=== PATIENT | female | born 1975 | race African-American/Black ===

== ENCOUNTER → 2022-06-04 | Day surgery (SDC) | payer OTHER ==
[~2022-06-04] VITALS: Ht 167.6 cm; Wt 170.1 kg
[~2022-06-04] MED LIST: ALDACTONE50 MG PO; ALIVE CALCIUM PO; DICLOFENAC SODI75 MG PO; MULTIVITAMIN200 MCG PO; NORVASC 10MG TA10 MG PO; VITAMIN D325 MC1 PO; ZYRTEC10 M3 PO
[2022-06-04 07:22] LABS: HCT 36.5 % (37.0-47.0); HGB 10.9 g/dl (12.5-16.0); MCH 24.4 pg (25.0-31.0); MCHC 29.9 g/dL (32.0-36.0); MCV 81.7 fL (78.0-100.0); MPV 8.7 fL (6.0-9.5); RBC 4.47 M/uL (4.20-5.40); RDW 17.2 % (11.5-14.0); WBC 7.8 K/uL (4.0-10.5)
[2022-06-04 07:33] LABS: ALBUMIN 3.7 g/dL (3.4-5.0); BILIRUBIN - TOTAL 0.4 mg/dL (0.2-1.0); BUN/CREAT RATIO (CALC) 19.4 RATIO; CREATININE 0.62 mg/dL (0.51-0.95); POTASSIUM 3.8 mmol/L (3.5-5.1); TOTAL PROTEIN 7.7 g/dL (6.4-8.2)
== END | disposition home or self-care (01) ==
LOC: FAS 06:34
PROVIDERS: Orthopaedic Surgery
DX: M75.121 Complete rotator cuff tear or rupture of right shoulder, not specified as traumatic (principal); M75.51 Bursitis of right shoulder; M77.9 Enthesopathy, unspecified; M19.011 Primary osteoarthritis, right shoulder
CPT/HCPCS: 36415; 71045; 80053; 84703; 93005; C1713; J0171; J1100; J1885; J2250; J2405; J2704; J2795; J3010; J7120